=== PATIENT | female | born 1940 | race Caucasian/White ===

== ENCOUNTER 2020-06-17 06:48 | Day surgery (SDC) | payer MEDICARE ==
[~2020-06-17] VITALS: Ht 161.3 cm; Wt 50.0 kg
[2020-06-17] MEDS ORDERED: FENTANYL PF 100 MCG/2ML ONE (07:04)
[2020-06-17] MEDS ORDERED: MIDAZOLAM 1 MG/ML, 2ML ONE (07:04)
[2020-06-17] MEDS ORDERED: CEFAZOLIN PMX 1GM/50ML 0 ML ONE (07:04)
[2020-06-17] MEDS ORDERED: LIDOCAINE 1%, 20ML ONE (07:04)
[2020-06-17] MEDS ORDERED: CEFAZOLIN 1,000 MG ONE (07:04)
[2020-06-17] MEDS ORDERED: SODIUM CHLORIDE 0.9% 1,000 ML IV SCH (07:10)
[2020-06-17] MEDS ORDERED: CHOL10003 PO (07:21)
[2020-06-17] MEDS ORDERED: HYDR-3343 PO (07:21)
[2020-06-17] MEDS ORDERED: DILT360C26 PO (07:21)
[2020-06-17] MEDS ORDERED: CALCIUM PO (07:21)
[2020-06-17] MEDS ORDERED: ASPI81TA45 PO (07:21)
[2020-06-17] MEDS ORDERED: TRIA1TAB5 PO (07:21)
[2020-06-17] MEDS ORDERED: DIGO250T3 PO (07:21)
[2020-06-17] MEDS ORDERED: ASCO100018 PO (07:21)
[2020-06-17 07:22] VITALS: BP 157/63
[2020-06-17] MEDS ORDERED: DIPHENHYDRAMINE 50 MG/ML, 1ML ONE (07:31)
[2020-06-17] MEDS ORDERED: VANCOMYCIN PMX 1GM/200ML 200 ML ONE (07:32)
[2020-06-17] MEDS ORDERED: VANCOMYCIN 500 MG ONE (07:32)
== END 2020-06-17 09:56 | disposition home or self-care (01) ==
LOC: CACL 06:48
PROVIDERS: ATTEND Internal Medicine Cardiovascular Disease
DX: Z45.010 Encounter for checking and testing of cardiac pacemaker pulse generator [battery] (principal); I49.5 Sick sinus syndrome; I10 Essential (primary) hypertension; E78.5 Hyperlipidemia, unspecified; I48.0 Paroxysmal atrial fibrillation; F17.210 Nicotine dependence, cigarettes, uncomplicated; E78.00 Pure hypercholesterolemia, unspecified; Z79.82 Long term (current) use of aspirin; Z79.899 Other long term (current) drug therapy; Z88.0 Allergy status to penicillin; Z98.890 Other specified postprocedural states
CPT/HCPCS: 33228; C1785; J1200; J3370; J0690; J2250; J3010